=== PATIENT | male | born 1975 | race Caucasian/White ===

== ENCOUNTER 2018-05-16 13:14 | Emergency (ER) | payer OTHER ==
[2018-05-16 13:24] VITALS: TEMP 97.8; BMI 27.1
--- NOTE | 2018-05-16 13:59 | PDOC ---
History of Present Illness - General Chief Complaint: Pain Stated Complaint: ABD PAIN Time Seen by Provider: 05/16/18 13:56 - History of Present Illness Initial Comments: 42yo M with history of hyperlipidemia presenting with abdominal pain x 2 weeks. The pain is intermittent; he is unsure what makes it better or worse and it is described as crampy. Patient comes in today because the pain has increased in severity and frequency, now occurring several times per hour, and rated between 4 and 6/10. Patient has tried tea and alba chet at home with little relief. No history of abdominal surgeries. No history of kidney stones, gallstones or ulcers. Patient also endorses a few seconds of non-radiating chest pain that occurred around 10:30am, as well as a few days ago. No associated nausea, vomiting, or diaphoresis. Denies personal or family history of [place]. Has never seen a medical technologist. Last bowel movement was yesterday and was a normal formed brown stool without blood. No sick contacts or recent travel. Denies fever, chills, dysuria, hematuria, or shortness of breath. Past History - Past Medical History Allergies/Adverse Reactions: Allergies Allergy/AdvReac Type Severity Reaction Status Date / Time No Known Allergies Allergy Verified 05/16/18 13:24 Home Medications: Ambulatory Orders NK [No Known Home Medication] 05/16/18 COPD: No - Suicide/Smoking/Psychosocial Hx Smoking History: Never smoked Have you smoked in the past 12 months: No Information on smoking cessation initiated: No Hx Alcohol Use: No Drug/Substance Use Hx: No Substance Use Type: None Review of Systems - Review of Systems Comments:: Constitutional: no fever, no chills HEENT: no throat pain, no dysphagia Cardiovascular: +chest pain, no palpitations Respiratory: no cough, no shortness of breath Gastrointestinal: +abdominal pain, no nausea, no vomiting, no diarrhea, no constipation Genitourinary: no dysuria, no frequency Musculoskeletal: no myalgia, no arthralgia Skin: no rash, no itching Neurologic: no headache, no dizziness *Physical Exam - Vital Signs Last Vital Signs Temp Pulse Resp BP Pulse Ox 97.8 F 55 L 17 120/61 100 05/16/18 13:21 05/16/18 13:21 05/16/18 13:21 05/16/18 13:21 05/16/18 13:21 - Physical Exam Comments: General: Awake, alert, and fully oriented, in no acute distress Head: No signs of trauma Eyes: EOMI, sclera anicteric ENT: Moist mucus membranes Neck: Normal ROM, supple Lungs: Lungs clear, Normal breath sounds Cardio: Regular rhythm, S1 and S2 present Abdomen: Tender to palpation diffusely, most focal to the LLQ; Soft, nondistended. No guarding, no rebound, no masses Extremities: Normal range of motion, Distal pulses present SKIN: Warm, Dry, normal turgor Neurologic: Cranial nerves II through XII grossly intact. Normal speech ED Treatment Course - LABORATORY CBC & Chemistry Diagram: 05/16/18 14:20 05/16/18 14:20 Medical Decision Making - Medical Decision Making 42yo M with history of hyperlipidemia presenting with abdominal pain x 2 weeks. -DDX includes but not limited to diverticulitis, gastritis, hepatitis, cholecystitis, nephrolithiasis -Labs: no leukocytosis or anemia, Tpn negative, Lipase nl, Tpn negative, UA negative -pending CT and CXR report -Patient reports some alleviation of his pain 05/16/18 16:58 -CXR: no acute pathology 05/16/18 17:02 CT negative for acute pathology. Dr. Forte and Naveen unavailable at this time. Discharged. Patient amenable to plan. 05/16/18 17:46 *DC/Admit/Observation/Transfer Diagnosis at time of Disposition: Abdominal pain - Discharge Dispostion Disposition: HOME Condition at time of disposition: Improved - Referrals Referrals: Kiarra Forte MD [Primary Care Provider] - - Patient Instructions Printed Discharge Instructions: DI for Abdominal Pain-Adult Additional Instructions: You came into the ED for abdominal pain. Labs and CT imaging were normal. Follow-up with your primary care doctor this week to discuss this ED visit and to further evaluate your symptoms. You can take [id number] motrin or tylenol for your pain. Follow the instructions on the medication bottle. Immediate medical attention is required if you have: you develop worsening pain , high fevers, persistent nausea, vomiting, or any new or concerning symptoms. If you think you are having an emergency, call for emergency medical services or present to the emergency department right away. - Post Discharge Activity
[2018-05-16] MEDS ORDERED: MAG HYDROX/AL HYDROX/SIMETH -MYLANTA- ORAL SUSPENSION PO ONE (14:17)
[2018-05-16] MEDS ORDERED: DICYCLOMINE HCL 20 MG TABLET PO ONE (14:17)
[2018-05-16] MEDS ORDERED: ACETAMINOPHEN 1000 MG/100 ML VIAL (NON FORMULARY) IVPB ONE (14:17)
[2018-05-16] MEDS ORDERED: SODIUM CHLORIDE 1,000 ML IV STA (14:17)
[2018-05-16] MEDS ORDERED: FAMOTIDINE 20 MG/50 ML IVPB 20 MG/50 ML MG IVPB ONE ×2 (14:17→14:23)
[2018-05-16] MEDS ORDERED: MAG HYDROX/AL HYDROX/SIMETH 30 ML UNIT-DOSE CUP ONE (14:23)
[2018-05-16] MEDS ORDERED: ACETAMINOPHEN INJECTION 100 ML IVPB ONE (14:23)
[2018-05-16 14:29] LABS: BASO % 0.3 % (0-2.0); EOS % 0.6 % (0-4.5); HEMATOCRIT 43.7 % (35.4-49); HEMOGLOBIN 14.5 GM/dL (11.7-16.9); LYMPH % 26.3 % (8-40); MCH 31.8 pg (25.7-33.7); MCHC 33.3 g/dl (32.0-35.9); MEAN CELL VOLUME 95.7 fl (80-96); MONO % 6.2 % (3.8-10.2); NEUT % 66.6 % (42.8-82.8); PLATELET COUNT 251 K/MM3 (134-434); RBC 4.56 M/mm3 (4.00-5.60); RDW 13.4 % (11.9-15.9); WHITE BLOOD COUNT 5.8 K/mm3 (4.0-10.0)
[2018-05-16 14:31] LABS: URINE APPEARANCE CLEAR; URINE BILIRUBIN NEGATIVE (<2.0 mg/dL); URINE COLOR LTYELLOW; URINE GLUCOSE (UA) NEGATIVE (NEGATIVE); URINE KETONE NEGATIVE (NEGATIVE); URINE LEUK ESTERASE NEGATIVE (NEGATIVE); URINE NITRITE NEGATIVE (NEGATIVE); URINE PROTEIN NEGATIVE (NEGATIVE); URINE UROBILINOGEN NEGATIVE mg/dL (0.2-1.0)
[2018-05-16 14:51] LABS: ALBUMIN 4.4 g/dl (3.4-5.0); ALK PHOS 65 U/L (45-117); ANION GAP 8 MMOL/L (8-16); BILIRUBIN,TOTAL 0.4 mg/dL (0.2-1); BLOOD UREA NITROGEN 9 mg/dL (7-18); CALCIUM 9.2 mg/dL (8.5-10.1); CHLORIDE 103 mmol/L (98-107); CO2 28 mmol/L (21-32); CREATININE 1.2 mg/dL (0.55-1.3); GLUCOSE,RANDOM 91 mg/dL (74-106); POTASSIUM 4.2 mmol/L (3.5-5.1); SGOT/AST 19 U/L (15-37); SGPT/ALT 25 U/L (13-61); SODIUM 138 mmol/L (136-145); TOT PROT 7.8 g/dl (6.4-8.2)
--- NOTE | 2018-05-16 15:05 | PDOC ---
Attending Attestation - Resident Resident Name: Mary Patel - ED Attending Attestation I have performed the following: I have examined & evaluated the patient, The case was reviewed & discussed with the resident, I agree w/resident's findings & plan - HPI HPI: 05/16/18 15:01 Mr Lay 42 year old male with a significant past medical history of hyperlipidemia and no surgical history who presents to the emergency department with abdominal pain for 2 weeks. LUQ/LLQ abdominal pain as an intermittent cramping discomfort, 4/10 in severity. He states that his abdominal pain worsened today which prompted him to go see his PCP who sent him to the ED for further evaluation. The patient also reports some intermittent chest pain for 4 days that is a 2/10 in severity. He denies any cardio history. He denies any other symptoms. He denies any fever, chills, nausea, vomiting, diarrhea, constipation or urinary symptoms. He denies any shortness of breath, headache or dizziness. The patient denies any other complaints. no sick contacts, trauma or stressors. - Physicial Exam PE: 05/16/18 15:01 NAD, well appearing, PERRL, EOMI, MMM, nl conjunctiva, anicteric; neck supple. lungs clear, RRR, abdomen soft LUQ and LLQ tenderness, mild rebound, no guarding , normal testicular exam, no inguinal hernia palpated, no testicular or scrotal tenderness or swelling. REN x4, no focal neuro deficits. No peripheral edema. normal color for ethnicity, WWP. - Medical Decision Making 05/16/18 15:02 A 42-year-old male with history of hyperlipidemia presenting with left-sided abdominal pain 2 weeks, otherwise no GI or urinary symptoms, no trauma. Testicular exam unremarkable as documented. Vital signs reviewed, wnl. no cp or sob, well appearing, nontoxic. Prior notes reviewed, including admissions, discharges and consultations. laboratory results and imaging reviewed, basic labs and lytes wnl, notable for normal cardiac enzymes, less likely cardiac. lfts and lipase normal UA_neg for blood or infection EKG sinus rhythm, mild bradycardia no interval abnormalities, narrow QRS, ST and T wave segments and morphology normal. ED course: no acute events, remained stable and well appearing. Clinically improved after interventions, including IVF< tylenol and pepcid. CT a/p to r/o diverticulitis/hernia or intra abdominal process. NEGATIVE study, cholelithiasis, but no intra abdominal pathology Dispo: I discussed the physical exam findings, ancillary test results and final diagnoses with the patient. I answered all of the patient's questions. The patient was satisfied with the care received and felt comfortable with the discharge plan and treatment plan. The patient will return to the Emergency Department with any new, persistent or worsening symptoms. primary doctor made aware, Dr. Hodge/Jann 05/16/18 17:45 Heart Score/ECG Review - ECG Impressions Normal ECG: Yes Comment:: 05/16/18 15:04 EKG sinus rhythm, mild bradycardia no interval abnormalities, narrow QRS, ST and T wave segments and morphology normal.
[2018-05-16 18:09] VITALS: BP 117/54; PULSE 60
--- NOTE | 2018-05-17 11:10 | EKG ---
Test Reason : Blood Pressure : / mmHG Vent. Rate : 044 BPM Atrial Rate : 044 BPM P-R Int : 150 ms QRS Dur : 090 ms QT Int : 424 ms P-R-T Axes : 063 032 062 degrees QTc Int : 362 ms MARKED SINUS BRADYCARDIA ABNORMAL ECG NO PREVIOUS ECGS AVAILABLE Confirmed by TALIA LUNA MD ([id number]) on 05/17/2018 11:10:38 AM Referred By: Confirmed By:TALIA LUNA MD
== END 2018-05-16 18:10 | disposition home or self-care (01) ==
LOC: JER 13:14
PROC: 3E033GC Introduction of Other Therapeutic Substance into Peripheral Vein, Percutaneous Approach (ICD-10-PCS; principal; 2018-05-16)
PROC: 3E0337Z Introduction of Electrolytic and Water Balance Substance into Peripheral Vein, Percutaneous Approach (ICD-10-PCS; 2018-05-16)
PROC: 3E033NZ Introduction of Analgesics, Hypnotics, Sedatives into Peripheral Vein, Percutaneous Approach (ICD-10-PCS; 2018-05-16)
DX: R10.9 Unspecified abdominal pain (principal); E78.5 Hyperlipidemia, unspecified
CPT/HCPCS: 36415; 71046-TC-FY; 74177-TC; 80053; 81003; 82550; 82553; 83690; 84484; 85025; 93005; 93010; 99283-25; J0131; J7030

== ENCOUNTER 2019-05-29 09:46 | Emergency (ER) | payer OTHER ==
[2019-05-29 09:52] VITALS: BP 150/81; PULSE 50; TEMP 98; BMI 28.0
--- NOTE | 2019-05-29 10:39 | PDOC ---
History of Present Illness - General Chief Complaint: Head/Neck problem Stated Complaint: HEAD INJURY Time Seen by Provider: 05/29/19 10:07 History Source: Patient - History of Present Illness Timing/Duration: reports: other (this am) Past History - Past Medical History Allergies/Adverse Reactions: Allergies Allergy/AdvReac Type Severity Reaction Status Date / Time No Known Allergies Allergy Verified 05/29/19 09:52 Home Medications: Ambulatory Orders NK [No Known Home Medication] 05/16/18 COPD: No Hypercholesterolemia: Yes - Psycho Social/Smoking Cessation Hx Smoking History: Never smoked Have you smoked in the past 12 months: No Information on smoking cessation initiated: No Hx Alcohol Use: No Drug/Substance Use Hx: No Substance Use Type: None Review of Systems - Review of Systems Neurological: No: Headache, Dizziness *Physical Exam - Vital Signs Last Vital Signs Temp Pulse Resp BP Pulse Ox 98 F 50 L 19 150/81 99 05/29/19 09:50 05/29/19 09:50 05/29/19 09:50 05/29/19 09:50 05/29/19 09:50 - Physical Exam General Appearance: Yes: Appropriately Dressed. No: Apparent Distress HEENT: positive: Normal Voice, Other (1x1cm contusion to mid frontal scalp) Neck: positive: Supple Respiratory/Chest: negative: Respiratory Distress Integumentary: positive: Dry, Warm Neurologic: positive: Fully Oriented, Alert, Normal Mood/Affect ED Treatment Course - RADIOLOGY Radiology Studies Ordered: Category Date Time Status SKULL [RAD] Stat Radiology 05/29/19 10:27 Ordered Medical Decision Making - Medical Decision Making 05/29/19 10:36 43 yo M, no sig hx, here w/ scalp pain/swelling s/p injury this am. States he was at work doing some work under the bleachers when a sharp metal struck frontal scalp. States he heard " a crack". No LOC, dizziness, n/v See exam Scalp contusion -Skull XR neg -dc given hx Discharge - Discharge Information Problems reviewed: Yes Clinical Impression/Diagnosis: Scalp contusion Qualifiers: Encounter type: initial encounter Qualified Code(s): S00.03XA - Contusion of scalp, initial encounter Condition: Good Disposition: HOME - Follow up/Referral Referrals: Kiarra Forte MD [Primary Care Provider] - - Patient Discharge Instructions Patient Printed Discharge Instructions: Contusion Additional Instructions: Skull x-ray did not show any evidence of a fracture. You have a scalp bruise. Apply ice to the area and take Motrin or Tylenol as needed - Post Discharge Activity Work/Back to School Note: Back to Work
== END 2019-05-29 11:12 | disposition home or self-care (01) ==
LOC: JERFT 09:46
DX: S00.03XA Contusion of scalp, initial encounter (principal); W22.8XXA Striking against or struck by other objects, initial encounter; Y93.89 Activity, other specified; Y92.89 Other specified places as the place of occurrence of the external cause; Y99.0 Civilian activity done for income or pay; E78.00 Pure hypercholesterolemia, unspecified
CPT/HCPCS: 70260-TC-FY; 99282-25

== ENCOUNTER 2021-12-21 17:45 | Emergency (ER) | payer OTHER ==
[2021-12-21 17:53] VITALS: TEMP 97.2; BMI 25.4
[2021-12-21 18:29] VITALS: BP 131/78; PULSE 56
[2021-12-21] MEDS ORDERED: KETOROLAC TROMETHAMINE 30 MG/1 ML VIAL IM ONE (19:47)
[2021-12-21] MEDS ORDERED: KETOROLAC TROMETHAMINE 30 MG/1 ML VIAL ONE (19:57)
== END 2021-12-21 20:33 | disposition home or self-care (01) ==
LOC: JER 17:45
PROC: 3E0233Z Introduction of Anti-inflammatory into Muscle, Percutaneous Approach (ICD-10-PCS; principal; 2021-12-21)
DX: M25.511 Pain in right shoulder (principal)
CPT/HCPCS: 73030-TC-RT-FY; 99284-25

== ENCOUNTER → 2022-03-04 | Day surgery (SDC) | payer OTHER ==
[2022-02-22 15:29] VITALS: BMI 26.8
[~2022-03-04] MED LIST: BUPIVACAINE HCL/EPINEPHRINE/PF 30 ML VIAL IJ ONE; DEXAMETHASONE SOD PHOSPHATE 10 MG/1 ML VIAL ONE; DEXAMETHASONE SOD PHOSPHATE 4 MG/1 ML VIAL ONE; FENTANYL CITRATE/PF 50 MCG/ML VIAL ONE; LACTATED RINGERS SOLUTION 1,000 ML IV SCH; MIDAZOLAM HCL 2 MG/2 ML SINGLE DOSE VIAL ONE; ONDANSETRON 4 MG/2 ML VIAL IVPUSH PRN; PROPOFOL 20 ML ONE; ROPIVACAINE HCL/PF 100 MG/20 ML VIAL ONE; ceFAZolin SODIUM 1 GM VIAL ONE; oxyCODONE HCL 5 MG TABLET PO PRN
[2022-03-04 16:12] VITALS: TEMP 97.1
[2022-03-04 16:40] VITALS: RESP 18
[2022-03-04 17:14] VITALS: BP 133/84; PULSE 44
== END | disposition home or self-care (01) ==
LOC: FASU 10:14
PROVIDERS: ATTEND Orthopaedic Surgery
PROC: 0LS30ZZ Reposition Right Upper Arm Tendon, Open Approach (ICD-10-PCS; 2022-03-04)
PROC: 0LQ14ZZ Repair Right Shoulder Tendon, Percutaneous Endoscopic Approach (ICD-10-PCS; principal; 2022-03-04 12:56)
PROC: 0RNJ4ZZ Release Right Shoulder Joint, Percutaneous Endoscopic Approach (ICD-10-PCS; 2022-03-04 12:56)
PROC: 0RBJ4ZZ Excision of Right Shoulder Joint, Percutaneous Endoscopic Approach (ICD-10-PCS; 2022-03-04 12:56)
DX: S45.0 Injury of axillary artery (principal); M75.21 Bicipital tendinitis, right shoulder; M75.51 Bursitis of right shoulder; M19.011 Primary osteoarthritis, right shoulder; X58.XXXD Exposure to other specified factors, subsequent encounter
CPT/HCPCS: 88304-TC; 94760; C1713; J1100